=== PATIENT | female | born 1960 | race Caucasian/White ===

== ENCOUNTER 2016-09-20 17:48 | Emergency (ER) | payer MEDICAID ==
[~2016-09-20] VITALS: Ht 152.4 cm; Wt 65.0 kg
[2016-09-20 17:53] VITALS: Ht 152.4 cm; Wt 65.0 kg
[2016-09-20] MEDS ORDERED: KETOROLAC 30 MG INJ IV STA (19:09)
--- NOTE | 2016-09-20 19:49 | ERD ---
ER Documentation Chief Complaint Date/Time DATE: 09/20/16 TIME: 19:47 Chief Complaint left ear pain HPI This is a 56-year-old female that presents to the ER with left ear pain for the last 2 days. Patient states that ear pain has gotten significantly worse and radiates to the back of her ear and down her neck. Patient states that because of this she is having trouble opening her mouth the hallway. Patient does admit to fever. She denies any ear discharge. She denies any sore throat. Patient denies any hearing loss or tinnitus. ROS 12 point review of systems was done, all negative except per HPI. Medications Home Meds Active Scripts Ibuprofen* (Motrin*) 600 Mg Tab, 600 MG PO Q6, #30 TAB Prov:HILDA HOOK 09/20/16 Neomycin/Polymyxin/Hydrocort* (Cortisporin* Otic) 10 Ml Susp, 4 DROP LEFT EAR QID for 7 Days, EA Prov:HILDA HOOK 09/20/16 Amoxicillin* (Amoxicillin*) 500 Mg Cap, 500 MG PO TID for 10 Days, CAP Prov:HILDA HOOK 09/20/16 Allergies Allergies: Coded Allergies: No Known Allergy (Unverified , 09/20/16) PMhx/Soc Medical and Surgical Hx: pt denies Medical Hx History of Surgery: Yes (L knee meniscus, CS x4) Anesthesia Reaction: No Hx Neurological Disorder: No Hx Respiratory Disorders: No Hx Cardiac Disorders: No Hx Psychiatric Problems: No Hx Miscellaneous Medical Probl: No Hx Alcohol Use: Yes (socially) Hx Substance Use: No Hx Tobacco Use: No Smoking Status: Never smoker Physical Exam Vitals Vital Signs Date Time Temp Pulse Resp B/P Pulse Ox O2 Delivery O2 Flow Rate FiO2 09/20/16 17:53 99.2 84 18 131/75 99 Physical Exam GENERAL: The patient is well developed and appropriate for usual state of health , in no apparent distress. HEENT: Atraumatic. Conjunctivae are pink. Pupils equal, round, and reactive to light. Extraocular muscles are grossly intact. Left external auditory canal is severely swollen, patient has mastoid tenderness.. The oropharynx is clear with no erythema or exudates. Patient has pain whenever she opens her mouth., No TMJ pain. CHEST: Clear to auscultation bilaterally. There are no rales, wheezes or rhonchi. HEART: Regular rate and rhythm. No murmurs, clicks, rubs or gallops. NEURO: Alert and oriented Result Diagram: 09/20/16192409/20/161924 Results 24 hrs Laboratory Tests Test 09/20/16 19:25 09/20/16 19:26 White Blood Count 7.810^3/ul Red Blood Count 4.6910^6/ul Hemoglobin 14.3g/dl Hematocrit 42.1% Mean Corpuscular Volume 89.8fl Mean Corpuscular Hemoglobin 30.5pg Mean Corpuscular Hemoglobin Concent 34.0g/dl Red Cell Distribution Width 12.4% Platelet Count 74652^3/UL Mean Platelet Volume 8.8fl Neutrophils % 56.5% Lymphocytes % 32.3% Monocytes % 9.2% Eosinophils % 1.3% Basophils % 0.4% Nucleated Red Blood Cells % 0.0/100WBC Neutrophils # 4.410^3/ul Lymphocytes # 2.510^3/ul Monocytes # 0.710^3/ul Eosinophils # 0.110^3/ul Basophils # 0.010^3/ul Nucleated Red Blood Cells # 0.010^3/ul Sodium Level 139mmol/L Potassium Level 3.8mmol/L Chloride Level 100mmol/L Carbon Dioxide Level 30mmol/L Anion Gap 13 Blood Urea Nitrogen 13mg/dl Creatinine 0.66mg/dl Glucose Level 98mg/dl Calcium Level 9.8mg/dl Total Bilirubin 0.2mg/dl Direct Bilirubin 0.00mg/dl Indirect Bilirubin 0.2mg/dl Aspartate Amino Transf (AST/SGOT) 74IU/L Alanine Aminotransferase (ALT/SGPT) 135IU/L Alkaline Phosphatase 124IU/L Total Protein 8.5g/dl Albumin 4.7g/dl Globulin 3.80g/dl Albumin/Globulin Ratio 1.23 Urine Color LT. YELLOW Urine Clarity CLEAR Urine pH 6.0 Urine Specific [place] <=1.005 Urine Ketones NEGATIVE Urine Nitrite NEGATIVE Urine Bilirubin NEGATIVE Urine Urobilinogen 0.2 E.U./dL Urine Leukocyte Esterase NEGATIVE Urine Hemoglobin NEGATIVE Urine Glucose NEGATIVE% Urine Total Protein NEGATIVE Current Medications Medications (Trade) Dose Ordered Sig/Teresa Route PRN Reason Start Time Stop Time Status Last Admin Dose Admin Ketorolac Tromethamine (Toradol) 30 mg ONCE STAT IV 09/20/16 19:09 09/20/16 19:12 DC 09/20/16 19:32 Procedures/MDM This is a 56-year-old female presents to the ER with left ear pain. Patient does have external otitis media. There is evidence of mastoiditis. Patient was also found to have TMJ bilaterally. Patient is afebrile and well-appearing. Patient is to follow-up with her primary care doctor within 1-2 days return to ER sooner if symptoms worsen. My medical decision making was shared with the patient she understands and agrees with plan. Departure Diagnosis: Primary Impression: Otitis externa Additional Impression: TMJ (dislocation of temporomandibular joint) Condition: Stable HILDA HOOK Sep 20, 2016 19:49
[2016-09-20 19:54] LABS: ADD SCAN DIFF NO
[2016-09-20 19:57] LABS: BASOPHILS % 0.4 % (0.0-2.0); EOSINOPHILS # 0.1 10^3/ul (0.0-0.5); EOSINOPHILS % 1.3 % (0.0-7.0); HEMATOCRIT 42.1 % (37.0-47.0); HEMOGLOBIN 14.3 g/dl (12.0-16.0); LYMPHOCYTES # 2.5 10^3/ul (0.8-2.9); LYMPHOCYTES % 32.3 % (15.0-51.0); MEAN CORPUSCULAR HEMOGLOBIN 30.5 pg (29.0-33.0); MEAN CORPUSCULAR VOLUME 89.8 fl (82.0-101.0); MEAN PLATELET VOLUME 8.8 fl (7.4-10.4); MONOCYTE # 0.7 10^3/ul (0.3-0.9); MONOCYTES % 9.2 % (0.0-11.0); NEUTROPHIL # 4.4 10^3/ul (1.6-7.5); NEUTROPHILS % 56.5 % (39.0-77.0); PLATELET COUNT 313 10^3/UL (140-415); RED BLOOD COUNT 4.69 10^6/ul (4.20-5.40); RED CELL DISTRIBUTION WIDTH 12.4 % (11.5-14.5); WHITE BLOOD COUNT 7.8 10^3/ul (4.8-10.8)
[2016-09-20 20:14] LABS: ALBUMIN 4.7 g/dl (3.3-4.9); ALBUMIN/GLOBULIN RATIO 1.23; BILIRUBIN,INDIRECT 0.2 mg/dl (0-1.1); BILIRUBIN,TOTAL 0.2 mg/dl (0.2-1.3); CALCIUM 9.8 mg/dl (8.4-10.2); CREATININE 0.66 mg/dl (0.44-1.00); POTASSIUM 3.8 mmol/L (3.5-5.1); TOTAL PROTEIN 8.5 g/dl (6.1-8.1)
[2016-09-20 20:23] LABS: ADD UMIC NO; URINE BILIRUBIN (Dip) NEGATIVE (NEGATIVE); URINE BLOOD (Dip) NEGATIVE (NEGATIVE); URINE COLOR LT. YELLOW (YELLOW); URINE GLUCOSE (Dip) NEGATIVE (NEGATIVE); URINE KETONES (Dip) NEGATIVE (NEGATIVE); URINE LEUKOCYTE ESTERASE (Dip) NEGATIVE (NEGATIVE); URINE NITRITE (Dip) NEGATIVE (NEGATIVE); URINE TOTAL PROTEIN (Dip) NEGATIVE (NEGATIVE); URINE UROBILINOGEN (Dip) 0.2 E.U./dL (0.1-1.0)
--- NOTE | 2016-09-20 20:49 | RADRPT ---
PROCEDURE: CT temporal bones without contrast CLINICAL INDICATION: Mastoid tenderness TECHNIQUE: A CT of the temporal bones without contrast was performed utilizing 0.63 mm axial secti ons. Coronal and sagittal images were also reformatted. The exam CTDIvol = 34.04 mGy and DLP = 319.0 3 mGy-cm. COMPARISON: None. FINDINGS: Right temporal bone: The external auditory canal is patent. The middle ear cavity and mastoid air cells are well developed and clear. The ossicles and scutum are intact. The bony labyrinth structu res are within normal limits and the otic capsule is intact. Internal auditory canal is normal in c aliber. Note is made of temporomandibular joint degenerative change Left temporal bone: The external auditory canal is patent. The middle ear cavity and mastoid air c ells are well developed and clear. The ossicles and scutum are intact. The bony labyrinth structur es are within normal limits and the otic capsule is intact. Internal auditory canal is normal in ca liber. Mild degenerative change of the temporomandibular joint is present RPTAT:HJJR IMPRESSION: Mild temporomandibular joint degenerative change bilaterally, otherwise unremarkable CT of the tempo ral bones and internal auditory canals Physician Ami Date Time Electronically viewed and signed by Physician Ami on 09/20/2016 20:48 /
[2016-09-20] MEDS ORDERED: NPH10OT LEFT EAR (20:59)
[2016-09-20] MEDS ORDERED: AMO500 PO (20:59)
[2016-09-20] MEDS ORDERED: IBUP-1542 PO (21:00)
== END 2016-09-20 21:21 | disposition home or self-care (01) ==
LOC: E/R 17:48 → FTE 21:21
DX: H60.92 Unspecified otitis externa, left ear (principal); S03.03XA Dislocation of jaw, bilateral, initial encounter; X58.XXXA Exposure to other specified factors, initial encounter; Y92.9 Unspecified place or not applicable
CPT/HCPCS: 70480; 80053; 81003; 85025; 96374; J1885; Z7502